=== PATIENT | female | born 1995 | race Caucasian/White ===

== ENCOUNTER 2024-04-27 17:13 | Emergency (ER) | payer SELFPAY ==
[2024-04-27 17:37] VITALS: BP 116/71
--- NOTE | 2024-04-27 17:38 | ED.GENMED ---
Addendum entered and electronically signed by Petty Guerrier PA-C 05/02/24 08:01:
e coli, nguyen sensitive; on bactrim no treatment chnage
Addendum entered and electronically signed by Madhu Cueto PA-C 04/29/24 07:12:
Urine culture shows greater than 100,000 colony-forming units of E. coli. Patient on antibiotics. Sensitivities pending
Original Note:
History of Present Illness
General
Chief Complaint: Flank Pain
Source: patient and spouse
Time Seen by Provider: 04/27/24 17:28
History of Present Illness
History of Present Illness:
28-year-old female presents to the emergency room complaining of bilateral flank pain, fatigue and fever. Patient's temperatures been up to 101.8. She was seen at an urgent care where they dipped her urine and told her she may have pyelonephritis
and sent her to the emergency room. Patient has no appetite but is tolerating liquids. No nausea or vomiting. Patient is quite uncomfortable due to her flank pain. Her temperature is 101.5 at the urgent care and they gave her Tylenol. Patient
states she has had pyelonephritis in the past. She has been hospitalized with 'sepsis'.
Past History
Past History
ED Past Medical History: Hypothyroidism, Psychiatric (Depression) and Other (Fibermyalgia); Negative Asthma, HTN, Hypercholesterolemia or NIDDM
ED Past Surgical History:
Social History
Tobacco: Smoker (Occasional)
Alcohol: None
Drug: None
Personal: Single
Living: with family
Employment: Employed
Family History
Family History: Cancer (thyroid CA, mother)
Phy Exam
Physical Exam
Physical Exam:
General: Awake, Alert, Oriented X3. No acute distress.
Vitals: unremarkable
Head: Atraumatic
Eyes: Pupils equal, EOMI
Throat: Airway intact, no exudates
Neck: Trachea midline
Lungs: Clear and equal b/l
Heart: Regular rate, no murmurs
Abd: Soft, Nontender, No pulsatile mass
Back: Bilateral CVA tenderness to percussion
Neuro: Nonfocal
Skin: Warm, dry, no rash
Extremities: pulses equal b/l, no edema
Course
Orders/Labs/Results
Orders:
Orders
04/27/24 17:20
Test Result ONCE
04/27/24 17:37
0.9% Sodium Chloride 1000 ml [Nss] 1,000 ml IV BOLUS
Ketorolac [Toradol] 15 mg IV NOW STA
04/27/24 18:01
Complete Blood Count/With Diff Urgent
Comprehensive Metabolic Panel Urgent
HCG, Serum Qualitative Screen Urgent
Lyme Progressive Urgent
Date Specimen was Collected: 04/27/24
Time Specimen was Collected: 17:20
Comment: ADD ON
Urinalysis Reflex To Culture Urgent
Date Specimen was Collected: 04/27/24
Time Specimen was Collected: 17:20
Urine Microscopic Reflex Cult Urgent
Urine Culture Urgent
NISA Source: U
Specimen Description:
Date Specimen was Collected: 04/27/24
Time Specimen was Collected: 17:20
04/27/24 18:37
CT Abd/pelvis W Iv Cont Urgent
Comment:
Reason For Exam: abd pain and b/l flank pain
04/27/24 18:45
COVID-19 Antigen Urgent
Source: Nasal Swab
Influenza A+B Rapid Molecular Urgent
NISA Source: Nasal Swab
Specimen Description:
04/27/24 19:13
Dicyclomine HCl [Bentyl] 20 mg IM NOW STA
04/27/24 20:23
Add On- LAB Urgent
Tests Added?: lyme progressive
04/27/24 20:27
Sulfamethox./Trimethoprim Ds [Bactrim Ds 800 mg/160 mg] 1 tablet PO NOW STA
Abnormal Lab Results
04/27/24
18:01
WBC 11.3 H 10^3/uL
(4.8-10.8)
MPV 11.5 H fL
(7.4-10.4)
Absolute Neuts (auto) 8.6 H 10^3/uL
(1.4-6.5)
Absolute Monos (auto) 0.9 H 10^3/uL
(0.1-0.6)
Neutrophils % 75.8 H %
(42.2-75.2)
Lymphocytes % 14.6 L %
(20.5-51.1)
Glucose 126 H mg/dl
(70-99)
Urine Ketones 2+ A
(Negative)
Leukocyte Esterase Rfl Trace A
(Negative)
Urine Bacteria (Reflex) Moderate A
(Negative)
04/27/24 18:01
04/27/24 18:01
Vital Signs
Initial and Last Documented VS:
Initial Vital Signs
Temp Pulse Resp Pulse Ox
99.0 F 100 18 100
04/27/24 17:15 04/27/24 17:15 04/27/24 17:15 04/27/24 17:15
Last Documented Vital Signs
Temp Pulse Resp BP Pulse Ox
98.8 F 82 18 120/71 98
04/27/24 20:41 04/27/24 19:12 04/27/24 17:15 04/27/24 19:06 04/27/24 19:15
MDM/Problems Addressed
Differential Diagnosis Includes:
pyelo, kidney stones, msk pain, diverticulitis
MDM/Problems Addressed:
Urine not clearly c/w uti. CT unremarkable except for likely complex cystic lesion on kidney which can be f/u as outpt and I did discuss this with the patient. Pt continues to have some discomfort. Will cover with bactrim for possible uti. Pt
stable for discharge
*Radiology
Radiology exam reviewed: radiology read reviewed
*Pulse Oximetry
Patient hypoxic: no
*Critical Care Note
Total Time (30-74mins, 75-104mins- exclusive of procedures): Not Applicable
ED Attending Note
-
Portions of this chart may have been created with voice recognition software.� Occasional wrong word or��sound alike� substitutions may have occurred due to the inherent limitations of voice recognition software.
Discharge Plan
Departure
Patient Disposition: Home (Routine Discharge)
Date of Disposition: 04/27/24
Time of Disposition: 20:28
Patient with high blood pressure during this ER visit?: No
Condition: Good
Discharge Problem:
Bilateral flank pain
Instructions: Urinary Tract Infection, Adult ED
Prescriptions:
New
sulfamethoxazole-trimethoprim [Bactrim DS] 800-160 mg tablet
1 tab PO BID Qty: 14 0RF
oxycodone 5 mg tablet
5 mg PO Q6H PRN (Reason: Pain) Qty: 12 0RF
Referrals:
NONE,* [Family Provider] -
Activity Restrictions/Additional Instructions:
The imaging and testing here does not show a clear reason for your symptoms. The urine test is not completely normal but it is not sure think that you have a urinary tract infection. However given your history and the fact had a fever at home we
will cover you with Bactrim for possible UTI. A culture of the urine has been sent. Additionally we sent a test for Lyme which we will call you if it is positive. You will not receive a call if it is negative. Follow-up your family doctor 3 or 4
days if you are not feeling better. Return to the emergency room if you feel you are getting worse.
Interventions
Interventions:
*Risk Screen - Suicide Last Done: 04/27/24 20:56
*General Assessment Last Done: 04/27/24 17:15
*Neglect/Abuse Screening Last Done: 04/27/24 20:56
*ED COVID-19 Vaccine History Last Done: 04/27/24 17:15
*Nursing Disposition Last Done: 04/27/24 20:56
KT-Mbfmrf-Qtequvobsx Assessment Last Done: 04/27/24 18:13
ED-Female Genitourinary Assessment Last Done: 04/27/24 18:13
Discharge Date and Time
Discharge Date/Time: 04/27/24 20:59
Print Language: KOREAN
[2024-04-27] MEDS: NSS 1000 IV (17:50)
[2024-04-27] MEDS: TORADOL 15 MG IV (17:50)
[2024-04-27 18:00] VITALS: BP 107/69
[2024-04-27 18:16] LABS: % Basophils 0.4 % (0-2); % Immature Granulocytes 0.3 % (0-0.5); % Lymphocytes 14.6 % (20.5-51.1); % Monocytes 7.9 % (1.7-9.3); % Neutrophils 75.8 % (42.2-75.2); Absolute Eosinophils 0.1 10^3/uL (0-0.7); Absolute Lymphocytes 1.7 10^3/uL (1.2-3.4); Absolute Monocytes 0.9 10^3/uL (0.1-0.6); Absolute Neutrophils 8.6 10^3/uL (1.4-6.5); Hematocrit 38.6 % (37.0-47.0); Hemoglobin 13.6 g/dL (12.0-16.0); Mean Corp Hgb Conc. 35.2 g/dL (33.0-37.0); Mean Corpuscular Hgb 28.8 pg (27.0-31.0); Mean Corpuscular Volume 81.8 fL (81.0-99.0); Mean Platelet Volume 11.5 fL (7.4-10.4); Nucleated Red Blood Cells % 0 %; Platelet Count 147 10^3/uL (130-400); Red Blood Cell Count 4.72 10^6/uL (4.20-5.40); Red Cell Dist. Width 12.8 % (11.5-14.5); White Blood Cell Count 11.3 10^3/uL (4.8-10.8)
[2024-04-27 18:19] LABS: Urine Albumin Negative (Neg - Trace); Urine Bilirubin Negative (Negative); Urine Character Clear (Clear); Urine Color Yellow; Urine Glucose Negative (Negative); Urine Ketone 2+ (Negative); Urine Leukocyte Trace (Negative); Urine Nitrite Negative (Negative); Urine Occult Blood Negative (Negative); Urine Urobilinogen Negative (Neg - 1+)
[2024-04-27 18:27] LABS: Urine Bacteria Moderate (Negative); Urine Red Blood Cell 0-2 /HPF (0-2); Urine Squamous Cell >30 /LPF (Few)
[2024-04-27 18:29] LABS: HCG, Serum Qualitative Screen Negative
[2024-04-27 18:33] LABS: ALT (SGPT) 12 U/L (0-35); AST (SGOT) 18 U/L (14-36); Albumin 4.6 g/dl (3.5-5.0); Alkaline Phosphatase 84 U/L (38-126); Blood Urea Nitrogen 8 mg/dl (7-17); Calcium 9.5 mg/dl (8.4-10.2); Carbon Dioxide 24 mmol/L (22-30); Chloride 103 mmol/L (98-107); Glucose 126 mg/dl (70-99); Potassium 3.8 mmol/L (3.5-5.1); Sodium 137 mmol/L (135-145); Total Bilirubin 0.5 mg/dl (0.2-1.3); Total Protein 7.6 g/dl (6.3-8.2); eGFR > 60.00
[2024-04-27 19:06] VITALS: BP 120/71
[2024-04-27 19:09] LABS: COVID-19 Antigen Negative (Negative)
[2024-04-27] MEDS: BENTYL 20 MG IM (19:21)
[2024-04-27] MEDS: BACTRIM DS 800 MG/160 MG 1 TABLET PO (20:43)
[2024-04-30 11:36] LABS: Lyme Antibody Screen, EIA Negative (Negative)
== END 2024-04-27 20:59 | disposition home or self-care (01) ==
LOC: EMR 17:13
PROVIDERS: EMERGENCY PHYSICIAN Emergency Medicine
DX: R10.9 Unspecified abdominal pain (principal); R50.9 Fever, unspecified; N39.0 Urinary tract infection, site not specified; B96.20 Unspecified Escherichia coli [E. coli] as the cause of diseases classified elsewhere; Z11.52 Encounter for screening for COVID-19; E03.9 Hypothyroidism, unspecified; F32.A Depression, unspecified; M79.7 Fibromyalgia; F17.200 Nicotine dependence, unspecified, uncomplicated; Z88.5 Allergy status to narcotic agent
CPT/HCPCS: 99285; 96361; 96372; 96374; 74177; 80053; 81003; 81015; 84703; 85025; 86618; 87086; 87088; 87186; 87502; 87811; Q9967

== ENCOUNTER → 2024-07-15 08:39 | Outpatient (REF) | payer OTHER, SELFPAY | LOC: MRI 3T 08:39 | PROVIDERS: ATTENDING PHYSICIAN Nurse Practitioner Family | DX: D49.512 Neoplasm of unspecified behavior of left kidney (principal); R93.2 Abnormal findings on diagnostic imaging of liver and biliary tract | CPT/HCPCS: 74183; A9575 ==

== ENCOUNTER 2024-09-30 20:04 | Emergency (ER) | payer OTHER, SELFPAY ==
[2024-09-30 20:06] VITALS: BP 123/71
--- NOTE | 2024-09-30 20:41 | ED.GENMED ---
History of Present Illness
General
Chief Complaint: Skin Surface Trauma
Source: patient
Exam Limitations: none
Time Seen by Provider: 09/30/24 20:41
Nursing documentation reviewed up to this point in time: agreed with
History of Present Illness
History of Present Illness:
This is a 29-year-old female with past medical history of hypothyroidism, migraines, depression presents emergency department today with a laceration to her left index finger. Patient states that she was about to cut a cooked ham with a knife when
she accidentally cut her finger. Patient notes persistent bleeding and pain at the site of the laceration. Patient denies any other injuries. Patient has full range of motion of all her digits, denies any loss of sensation, denies any numbness or
tingling in her fingers. Patient denies any allergies to any medications.
Past History
Past History
ED Past Medical History: Hypothyroidism, Psychiatric (Depression) and Other (Fibermyalgia); Negative Asthma, HTN, Hypercholesterolemia or NIDDM
ED Past Surgical History:
Social History
Tobacco: Smoker (Occasional)
Alcohol: None
Drug: None
Personal: Single
Living: with family
Employment: Employed
Family History
Family History: Cancer (thyroid CA, mother)
Review of Systems
Review of Systems
All Other Systems: ROS reviewed and negative except as documented in HPI and ROS
Phy Exam
Physical Exam
Physical Exam:
General: Patient is well appearing and in no acute distress; non-toxic
Skin: There is a actively bleeding 2 cm laceration noted to the left anterior index finger; brisk capillary refill. No obvious foreign body or tendon involvement.
Head: Normocephalic, atraumatic
Eyes: Sclera non-icteric. EOMs intact. PERRLA.
Cardiac: Regular rate and rhythm, no murmurs
Peripheral Vascular: No lower extremity swelling or edema
Pulm: Normal respiratory effort
Musculoskeletal: No bony tenderness to palpation of the left first digit. Good FDS/FDP strength, no extension/flexion deformity
Neuro: CN II-XII intact, no focal neurologic deficits. Sensation intact.
Psychiatric: Appropriate mood and affect.
Course
Orders/Labs/Results
Orders:
Orders
09/30/24 20:57
Tetanus/Diphth/Acelpertussis [Adacel] 0.5 ml IM .ONCE ONE
09/30/24 21:32
Ibuprofen [Motrin] 400 mg PO NOW STA
Vital Signs
Initial and Last Documented VS:
Initial Vital Signs
Temp Pulse Resp BP Pulse Ox
98.3 F 75 18 123/71 99
09/30/24 20:06 09/30/24 20:06 09/30/24 20:06 09/30/24 20:06 09/30/24 20:06
Last Documented Vital Signs
Temp Pulse Resp BP Pulse Ox
98.3 F 75 18 123/71 99
09/30/24 20:06 09/30/24 20:06 09/30/24 20:06 09/30/24 20:06 09/30/24 20:06
Procedures
Laceration Closure
Left Anterior Finger:
Status of Wound: clean
Size of Wound in cm: 2
Description of Wound Edges: sharp
Preparation: cleaned with saline
Anesthesia: 1% Lidocaine
Revision/Debridement: routine- no revision
Wound exploration: explored to base- no FB
Type of Closure: single layer closure
Skin Closure Material: 4-0 prolene
Number of sutures: 6
MDM/Problems Addressed
Differential Diagnosis Includes:
see below
MDM/Problems Addressed:
NUMBER AND COMPLEXITY OF PROBLEMS ADDRESSED AT THE ENCOUNTER
� Chronic conditions affecting care: N/A
� Acute Exacerbation and/or Progression of Chronic Illness: Thyroid disease, migraines, depression
� Differential Diagnosis includes: Laceration, abrasion, neurovascular injury
AMOUNT AND/OR COMPLEXITY OF DATA TO BE REVIEWED AND ANALYZED
� I performed an independent evaluation of and my interpretation is:
Indication for x-rays or blood work at this time
Other:
� Review of other/old records: Reviewed previous ER physician documentation from 04/27/2024, patient seen for bilateral flank pain, patient started for antibiotics and discharge, no hospital discharge summaries to review [facility]
� Clinical information was obtained by an independent historian: present with patient who also provided history
� Prescriptions/Medications Considered but not given: Considered antibiotics however the wound was thoroughly irrigated
� Further testing considered but not performed: N/A
RISK OF COMPLICATIONS AND/OR MORBIDITY OR MORTALITY OF PATIENT MANAGEMENT
� Social determinants of health affecting care: None
� Discussion with other providers: ER attending
� Escalation of care including admission/observation vs risk of discharge considered:
29-year-old female presents emergency department today with a laceration to her left index finger. Patient states that this occurred when she cut herself with a knife when attempting to cut at the exam. Patient denies any numbness or tingling in
extremity. On physical exam, she has good at the FDS FDP strength, no obvious foreign body or tendon involvement. Laceration was repaired with 4-0 Prolene sutures. Patient tolerated the procedure well. Wound care discussed. Discussed having her
sutures removed with her primary care provider or the emergency department in about a week. Patient stable for discharge.
*Critical Care Note
Total Time (30-74mins, 75-104mins- exclusive of procedures): Not Applicable
ED Attending Note
-
Portions of this chart may have been created with voice recognition software.� Occasional wrong word or��sound alike� substitutions may have occurred due to the inherent limitations of voice recognition software.
Discharge Plan
Departure
Patient Disposition: Home (Routine Discharge)
Date of Disposition: 09/30/24
Time of Disposition: 21:33
Patient with high blood pressure during this ER visit?: Yes
Condition: Good
Discharge Problem:
Laceration of finger
Instructions: Wound Care (DC), Laceration Repair With Stitches (DC)
Prescriptions:
No Action
sulfamethoxazole-trimethoprim [Bactrim DS] 800-160 mg tablet
1 tab PO BID Qty: 14 0RF
oxycodone 5 mg tablet
5 mg PO Q6H PRN (Reason: Pain) Qty: 12 0RF
Activity Restrictions/Additional Instructions:
Please report to your primary care provider, urgent care, or the emergency department in one week to have your stitches removed.
You can expect mild bloody to clear drainage from the wound.
Please keep the wound dry for 24 hours. After 24 hours, you can let mild soapy water run over the wound, please do not scrub the wound.
PLEASE REPORT TO THE EMERGENCY DEPARTMENT SHOULD YOU EXPERIENCE PURULENT DRAINAGE FROM THE WOUND, SURROUNDING REDNESS, SWELLING OR THE FINGER, LOSS OF SENSATION, PALLOR, OR ANY OTHER SIGNS OR SYMPTOMS WORRISOME TO YOU.
Interventions
Interventions:
*Risk Screen - Suicide Last Done: 09/30/24 21:43
*General Assessment Last Done: 09/30/24 20:06
*Neglect/Abuse Screening Last Done: 09/30/24 21:43
ED- Fall Risk Assessment Last Done: 09/30/24 21:43
*ED COVID-19 Vaccine History Last Done: 09/30/24 21:55
*Nursing Disposition Last Done: 09/30/24 21:55
ED-Skin Assessment Last Done: 09/30/24 21:43
Discharge Date and Time
Discharge Date/Time: 09/30/24 21:58
Print Language: VENEZUEL[place]
[2024-09-30] MEDS: ADACEL 0.5 ML IM (21:29)
[2024-09-30] MEDS: MOTRIN 400 MG PO (21:36)
== END 2024-09-30 21:58 | disposition home or self-care (01) ==
LOC: EMR 20:04
PROVIDERS: EMERGENCY PHYSICIAN Emergency Medicine; FAMILY PHYSICIAN Nurse Practitioner Family
DX: S61.211A Laceration without foreign body of left index finger without damage to nail, initial encounter (principal); W26.0XXA Contact with knife, initial encounter; Z23 Encounter for immunization; E03.9 Hypothyroidism, unspecified; F17.200 Nicotine dependence, unspecified, uncomplicated
CPT/HCPCS: 99282; 12001; 90471; 90715

== ENCOUNTER → 2024-11-06 14:08 | Outpatient (REF) | payer OTHER, SELFPAY | LOC: RAD 14:08 | PROVIDERS: ATTENDING PHYSICIAN Surgery | DX: N12 Tubulo-interstitial nephritis, not specified as acute or chronic (principal); N13.30 Unspecified hydronephrosis | CPT/HCPCS: 74178; Q9967 ==

== ENCOUNTER → 2024-11-27 09:39 | Outpatient (REF) | payer OTHER, SELFPAY | LOC: WDC 09:39 | PROVIDERS: ATTENDING PHYSICIAN Nurse Practitioner Family | DX: N63.20 Unspecified lump in the left breast, unspecified quadrant (principal); N60.11 Diffuse cystic mastopathy of right breast; N63.23 Unspecified lump in the left breast, lower outer quadrant | CPT/HCPCS: 76642; 77062; 77066 ==